=== PATIENT | male | born 1975 | race Caucasian/White ===

== ENCOUNTER 2017-02-15 15:59 | Emergency (ER) | payer SELFPAY ==
[~2017-02-15] VITALS: Ht 175.3 cm; Wt 113.4 kg
[2017-02-15] MEDS ORDERED: ASPIRIN CHEWABLE 81 MG TABLET. PO ONE (16:15)
[2017-02-15 16:22] LABS: BASO % 1 % (0-3); EOS % 2 % (0-3); HEMOGLOBIN 14.9 g/dL (13.0-17.5); LYMPH # 1.7 x10^3/uL (1.0-4.8); LYMPH % 19 % (24-48); MEAN CORPUSCULAR HEMOGLOBIN 28 pg (25-35); MEAN CORPUSCULAR HGB CONC 34 g/dL (31-37); MEAN CORPUSCULAR VOLUME 83 fL (79-100); MONO % 7 % (0-9); NEUT % 72 % (31-73); PLATELET COUNT 196 x10^3/uL (140-400); RED BLOOD COUNT 5.32 x10^6/uL (4.30-5.70); RED CELL DISTRIBUTION WIDTH 13.9 % (11.5-14.5); WHITE BLOOD COUNT 8.8 x10^3/uL (4.0-11.0)
[2017-02-15 16:42] LABS: CALCIUM 9.7 mg/dL (8.5-10.1); CREATININE 0.9 mg/dL (0.7-1.3); POTASSIUM 4.3 mmol/L (3.5-5.1)
[2017-02-15 16:47] LABS: ALBUMIN 3.9 g/dL (3.4-5.0); DIRECT BILIRUBIN 0.1 mg/dL (0.0-0.2); TOTAL BILIRUBIN 0.4 mg/dL (0.2-1.0); TOTAL PROTEIN 7.6 g/dL (6.4-8.2)
--- NOTE | 2017-02-15 17:57 | EKG ---
[facility] [address] [place] [address] Test Date: 2017-02-15 Test Time: 16:07:43 Pat Name: CARTER JIN Department: Room: Gender: M Senior Technical Editor: : 1975 Requested By: YE BAKER Order Number: [id number] Reading MD: Amandeep Blanc Measurements Intervals [place] Rate: 76 P: 17 [place]: 156 QRS: 4 QRSD: 94 T: 43 QT: 364 QTc: 414 Interpretive Statements SINUS RHYTHM Electronically Signed On 02-17-2017 10:32:28 CDT by Amandeep Blanc
[2017-02-15] MEDS ORDERED: ASPI-482 PO (17:58)
--- NOTE | 2017-02-15 17:59 | PHYS DOC ---
Past Medical History Past Medical History: Seizure, Other Additional Past Medical Histor: EPILEPSY Past Surgical History: Other Additional Past Surgical Histo: CARPAL TUNNEL BILAT Alcohol Use: Occasionally Drug Use: None Adult General Chief Complaint Chief Complaint: CHEST PAIN HPI HPI 42-year-old male presenting to the emergency department with chest pain. He reports moving over the past few days and recently having to attend his mother' s . He started having chest pain last night he describes as sharp shooting pain that is mild nonradiating and without alleviating factors. It went away spontaneously last night he was able to sleep throughout the night and this morning after about an hour of being awake he started having the pain again. He just wanted to get checked out today. It is mildly associated with shortness of breath. Initially in triage his pain was 7 out of 10, when the nurse evaluated him it was 2 out of 10, and when I evaluated it was resolved. He denies hyperlipidemia hypertension diabetes or history of MD. He denies unilateral leg swelling hemoptysis personal or family history of blood clotting disorders. He did have a 8 [address] ride but denies any leg pain or symptoms of DVT. Review of systems is negative for abdominal pain nausea vomiting or diaphoresis. All other review of systems is negative unless otherwise noted in history of present illness. Review of Systems Review of Systems SEE ABOVE. Current Medications Current Medications Current Medications Medications (Trade) Dose Ordered Sig/Estephanie Start Time Stop Time Status Last Admin Dose Admin Aspirin (Children'S Aspirin) 324 mg 1X ONCE 02/15/17 16:15 02/15/17 16:16 DC 02/15/17 16:27 324 MG Allergies Allergies Allergies Coded Allergies Type Severity Reaction Last Updated Verified No Known Drug Allergies 02/15/17 No Physical Exam Physical Exam Constitutional: Well developed, well nourished, no acute distress, non-toxic appearance. HENT: Normocephalic, atraumatic, bilateral external ears normal, oropharynx moist, no oral exudates, nose normal. [] Eyes: PERRLA, EOMI, conjunctiva normal, no discharge. Neck: Normal range of motion, no tenderness, supple, no stridor. [] Cardiovascular:Heart rate regular rhythm, no murmur Lungs & Thorax: Bilateral breath sounds clear to auscultation [] Abdomen: Bowel sounds normal, soft, no tenderness, no masses, no pulsatile masses. Skin: Warm, dry, no erythema, no rash. [] Back: No tenderness, no CVA tenderness. Extremities: No tenderness, no cyanosis, no clubbing, ROM intact, no edema. No clinical evidence of DVT present. Neurologic: Alert and oriented X 3, normal motor function, normal sensory function, no focal deficits noted. Psychologic: Affect normal, judgement normal, mood normal. [] Current Patient Data Vital Signs Vital Signs Date Time Temp Pulse Resp B/P (MAP) Pulse Ox O2 Delivery O2 Flow Rate FiO2 02/15/17 17:07 78 21 198/81 (120) 95 Room Air 02/15/17 16:11 98.2 98.2 Lab Values Laboratory Tests Test 02/15/17 16:10 White Blood Count 8.8 x10^3/uL (4.0-11.0) Red Blood Count 5.32 x10^6/uL (4.30-5.70) Hemoglobin 14.9 g/dL (13.0-17.5) Hematocrit 44.0 % (39.0-53.0) Mean Corpuscular Volume 83 fL (79-100) Mean Corpuscular Hemoglobin 28 pg (25-35) Mean Corpuscular Hemoglobin Concent 34 g/dL (31-37) Red Cell Distribution Width 13.9 % (11.5-14.5) Platelet Count 196 x10^3/uL (140-400) Neutrophils (%) (Auto) 72 % (31-73) Lymphocytes (%) (Auto) 19 % (24-48) L Monocytes (%) (Auto) 7 % (0-9) Eosinophils (%) (Auto) 2 % (0-3) Basophils (%) (Auto) 1 % (0-3) Neutrophils # (Auto) 6.3 x10^3uL (1.8-7.7) Lymphocytes # (Auto) 1.7 x10^3/uL (1.0-4.8) Monocytes # (Auto) 0.6 x10^3/uL (0.0-1.1) Eosinophils # (Auto) 0.1 x10^3/uL (0.0-0.7) Basophils # (Auto) 0.0 x10^3/uL (0.0-0.2) Sodium Level 139 mmol/L (136-145) Potassium Level 4.3 mmol/L (3.5-5.1) Chloride Level 100 mmol/L (98-107) Carbon Dioxide Level 30 mmol/L (21-32) Anion Gap 9 (6-14) Blood Urea Nitrogen 15 mg/dL (8-26) Creatinine 0.9 mg/dL (0.7-1.3) Estimated GFR (Cockcroft-Gault) 93.0 Glucose Level 111 mg/dL (70-99) H Calcium Level 9.7 mg/dL (8.5-10.1) Total Bilirubin 0.4 mg/dL (0.2-1.0) Direct Bilirubin 0.1 mg/dL (0.0-0.2) Aspartate Amino Transferase (AST) 18 U/L (15-37) Alanine Aminotransferase (ALT) 33 U/L (16-63) Alkaline Phosphatase 69 U/L (46-116) Troponin I Quantitative < 0.017 ng/mL (0.000-0.055) LE-Gpc-H-Type Natriuretic Peptide 21 pg/mL (0-124) Total Protein 7.6 g/dL (6.4-8.2) Albumin 3.9 g/dL (3.4-5.0) Lipase 134 U/L (73-393) Laboratory Tests 02/15/17 16:10 Laboratory Tests 02/15/17 16:10 EKG EKG EKG shows sinus rhythm with regular rate. Normal intervals. Normal axis. ST segments are congruent. Not suggestive of ACS. Reviewed by myself.[] Radiology/Procedures Radiology/Procedures Chest x-ray reviewed by myself shows no obvious infiltrate or pneumothorax present. No obvious acute cardiopulmonary process present.[] Course & Med Decision Making Course & Med Decision Making Pertinent Labs and Imaging studies reviewed. (See chart for details) 42-year-old male presenting to the emergency department today with chest pain. EKG unremarkable. Chest x-ray unremarkable. Afebrile with a normal heart rate. Blood pressure mildly elevated initially which came down without any intervention. Patient was asymptomatic prior to my evaluation. Troponin negative. Pain greater than 6 hours. Heart score 0. The patient was then discharged home in stable condition to follow up with their primary care physician over the next 2-3 days. They were to return if their symptoms worsened or if they were concerned for any reason. [id number] discharge instructions and return precautions were given. Patient's questions were answered to their satisfaction. Patient is comfortable plan. Dragon Disclaimer Dragon Disclaimer This electronic medical record was generated, in whole or in part, using a voice recognition dictation system. Departure Departure Impression: Primary Impression: Chest pain Disposition: HOME, SELF-CARE Condition: STABLE Referrals: NO PCP (PCP) ROGERS HERNANDEZ MD Patient Instructions: Chest Pain (Nonspecific) Additional Instructions: Thank you for allowing us to participate in your care today. Followup with your primary care physician in 3 days if your symptoms do not improve. If you do not have a primary care provider you can ask for a list of our primary care providers. Return to the emergency department you have any new or concerning findings. This should be evaluated by the primary care physician and any necessary consulting services for continued management within a few days after discharge. Return to emergency room if you have any new or concerning symptoms including but not limited to fever, chills, nausea, vomiting, intractable pain, any new rashes, chest pain, shortness of air, uncontrolled bleeding, difficulty breathing, and/or vision loss. Scripts Aspirin (ASPIR 81) 81 Mg Tablet.dr 1 TAB PO DAILY, #7 TAB 0 Refills Prov: YE BAKER MD 02/15/17 YE BAKER MD February 15, 2017 17:59
[2017-02-15 18:00] VITALS: BP 148/69
--- NOTE | 2017-02-16 08:55 | RAD ---
AP chest. History: Chest pain, right-sided pain, history hypertension AP view was taken of the chest. Lungs are free of infiltrates. Heart is normal in size without heart failure. There is no effusion. Impression: 1. No acute chest disease.
== END 2017-02-15 18:10 | disposition home or self-care (01) ==
LOC: ER 15:59
DX: R07.89 Other chest pain (principal); R06.02 Shortness of breath; G40.909 Epilepsy, unspecified, not intractable, without status epilepticus; G56.03 Carpal tunnel syndrome, bilateral upper limbs; Z79.82 Long term (current) use of aspirin
CPT/HCPCS: 36415; 71010; 80048; 80076; 83690; 83880; 84484; 85027; 93005; 99285-25